=== PATIENT | male | born 1955 | race Caucasian/White ===

== ENCOUNTER 2024-01-23 15:33 | Emergency (ER) | payer MEDICARE, OTHER, SELFPAY ==
[2024-01-23 15:35] VITALS: BP 151/79
--- NOTE | 2024-01-23 16:23 | ED.GENMED ---
History of Present Illness
General
Chief Complaint: Skin Surface Trauma
Time Seen by Provider: 01/23/24 16:03
History of Present Illness
History of Present Illness:
68-year-old male presents the emergency department for evaluation of a laceration to the left eyebrow sustained after a minor fall. He slipped while trying to support himself on the table for a table saw, struck his head on the corner of the table.
No loss of consciousness. Denies vision changes or headaches. He feels that his tetanus shot is up-to-date
Past History
Past History
ED Past Medical History: CVA and Hypercholesterolemia
ED Past Surgical History: None
Social History
Tobacco: Non-smoker
Alcohol: Occasional
Personal:
Living: with family
Review of Systems
Review of Systems
Allergies reviewed?: Yes
All Other Systems: ROS reviewed and negative except as documented in HPI and ROS
Phy Exam
Physical Exam
Physical Exam:
GEN: Well appearing, NAD, WDWN
HEENT: 1.5 cm vertical/curvilinear laceration to the medial left eyebrow, minimal bleeding, no FB; oral mucosa moist, no scleral icterus
Cardiac: Regular rate
Lung: No respiratory distress, no tachypnea
MSK: No gross deformity or injuries
Skin: Good color, no pallor or jaundice, no rashes
Neuro: AO x3, moves all extremities freely
Psych: Calm, cooperative
Course
Vital Signs
Initial and Last Documented VS:
Initial Vital Signs
Temp Pulse Resp BP Pulse Ox
98.0 F 73 20 151/79 97
01/23/24 15:35 01/23/24 15:35 01/23/24 15:35 01/23/24 15:35 01/23/24 15:35
Last Documented Vital Signs
Temp Pulse Resp BP Pulse Ox
98.0 F 73 20 151/79 97
01/23/24 15:35 01/23/24 15:35 01/23/24 15:35 01/23/24 15:35 01/23/24 15:35
Procedures
Laceration Closure
Left Eye brow:
Status of Wound: clean
Size of Wound in cm: 1.5
Description of Wound Edges: sharp
Preparation: cleaned with soap & water
Anesthesia: 1% Lidocaine with epi
Revision/Debridement: routine- no revision
Wound exploration: explored to base- no FB
Type of Closure: layered closure
Skin Closure Material: 5-0 chromic gut
Number of sutures: 2
Additional information:
superficial skin glue applied after buried subcuticular sutures
MDM/Problems Addressed
MDM/Problems Addressed:
Minor head trauma with no clinical signs of intracranial hemorrhage or skull fracture, subcuticular buried sutures were applied with topical skin glue with a good cosmetic result, discussed supportive care
*Critical Care Note
Total Time (30-74mins, 75-104mins- exclusive of procedures): Not Applicable
ED Attending Note
-
Portions of this chart may have been created with voice recognition software.� Occasional wrong word or��sound alike� substitutions may have occurred due to the inherent limitations of voice recognition software.
Discharge Plan
Departure
Patient Disposition: Home (Routine Discharge)
Date of Disposition: 01/23/24
Time of Disposition: 16:25
Patient with high blood pressure during this ER visit?: No
Discharge Problem:
Laceration of eyebrow, left
Instructions: Laceration Repair With Glue (DC)
Prescriptions:
No Action
amlodipine 5 MG tablet
5 mg PO DAILY Qty: 15 0RF
Referrals:
Jesse Person, DO [Family Provider] -
Interventions
Interventions:
*Risk Screen - Suicide Last Done: 01/23/24 15:35
*General Assessment Last Done: 01/23/24 15:35
*Neglect/Abuse Screening Last Done: 01/23/24 15:35
*Nursing Disposition Last Done: 01/23/24 16:48
ED-Skin Assessment Last Done: 01/23/24 15:51
Discharge Date and Time
Discharge Date/Time: 01/23/24 16:48
Print Language: YAKUT
== END 2024-01-23 16:48 | disposition home or self-care (01) ==
LOC: EMR 15:33
PROVIDERS: EMERGENCY PHYSICIAN Emergency Medicine; FAMILY PHYSICIAN Family Medicine
DX: S01.112A Laceration without foreign body of left eyelid and periocular area, initial encounter (principal); W19.XXXA Unspecified fall, initial encounter; E78.00 Pure hypercholesterolemia, unspecified; Z86.73 Personal history of transient ischemic attack (TIA), and cerebral infarction without residual deficits
CPT/HCPCS: 12051; 99282

== ENCOUNTER → 2025-02-06 06:20 | Outpatient (REF) | payer MEDICARE, OTHER, SELFPAY | LOC: HWRAD 06:20 | PROVIDERS: ATTENDING PHYSICIAN Family Medicine | DX: R20.2 Paresthesia of skin (principal); M54.2 Cervicalgia | CPT/HCPCS: 72040 ==